=== PATIENT | female | born 1990 | race Caucasian/White ===

== ENCOUNTER 2017-11-13 20:09 | Emergency (ER) | payer MEDICAID ==
[2017-11-13 20:09] VITALS: BMI 32.2
[2017-11-13 20:21] VITALS: BP 122/86; PULSE 84; RESP 14; TEMP 98.4; O2SAT 98
[2017-11-13] MEDS ORDERED: DiphenhydrAMINE 12.5 mg/5 ml LIQ UD (5 ml) PO STA (21:30)
--- NOTE | 2017-11-13 21:35 | C.PDOC ---
History Of Present Illness 27 year old female presents to the ED for evaluation of a rash to her right ankle and foot. Patient states, noted some itchy rash yesterday to Right ankle and lateral developed swelling to Right foot. Otherwise, Patient denies known trauma, injury, fever, chills, throat swelling or pain, dyspnea, wheezing, cough , abd. pain, N/V, denies weakness, sensory/vascular deficit to Right foot. Ambulate to ED for evaluation, not in any apparent distress. Time Seen by Provider: 11/13/17 20:12 Chief Complaint (Nursing): Lower Extremity Problem/Injury History Per: Patient History/Exam Limitations: no limitations Onset/Duration Of Symptoms: Days (1) Current Symptoms Are (Timing): Still Present Recent travel outside of the [place]: No Additional History Per: Patient - Ankle/Foot Description Of Injury: Other Past Medical History Reviewed: Historical Data, Nursing Documentation, Vital Signs Vital Signs: Last Vital Signs Temp 98.4 F 11/13/17 20:18 Pulse 84 11/13/17 20:18 Resp 14 11/13/17 20:18 BP 122/86 11/13/17 20:18 Pulse Ox 98 11/13/17 21:38 - Medical History PMH: No Chronic Diseases Surgical History: No Surg Hx - [facility] Procedures EXTRACTION OF POC, LOW CERVICAL, OPEN APPROACH (06/11/16) Family History: States: Unknown Family Hx - Social History Hx Alcohol Use: No Hx Substance Use: No - Immunization History Hx Tetanus Toxoid Vaccination: Yes Hx Influenza Vaccination: Yes Hx Pneumococcal Vaccination: No Review Of Systems Constitutional: Negative for: Fever, Chills Respiratory: Negative for: Cough, Shortness of Breath Musculoskeletal: Positive for: Other (ankle swelling). Negative for: Foot Pain Skin: Positive for: Rash Neurological: Negative for: Weakness, Numbness Physical Exam - Physical Exam Appears: Non-toxic, No Acute Distress Skin: Warm, Dry, Rash (vasicular erythematous rash to anterior aspect right ankle, mild edema extend to dorsal aspect Right foot. No proximal streaking, no flactualnce.) Head: Normacephalic Eye(s): bilateral: PERRL Nose: No Flaring, No Discharge Tongue: No Swelling Lips: No Swelling Throat: No Erythema, No Drooling, Other (Uvula midline, no edema.) Neck: Supple Cardiovascular: Rhythm Regular, No Murmur Respiratory: No Decreased Breath Sounds, No Accessory Muscle Use, No Stridor, No Wheezing Gastrointestinal/Abdominal: Soft, No Tenderness, No Guarding Extremity: Normal ROM (Right LE), No Tenderness, No Pedal Edema, No Calf Tenderness (Right), Capillary Refill (< 2 seconds), No Deformity, Swelling ( diffuse dorsal right foot edema. No proximal streaking. No abscess) Pulses: Right Dorsalis Pedis: Normal Neurological/Psych: Oriented x3, Normal Motor, Normal Sensation, Normal Reflexes Gait: Steady ED Course And Treatment O2 Sat by Pulse Oximetry: 98 (ON RA) Pulse Ox Interpretation: Normal Progress Note: Plan: - Benadryl 25 mg PO. - Doxycycline 100 mg PO. - Prednisone 60 mg PO. On re-evaluation, pt is afebrile, hemodynamicaly stable. Non-toxic. Tolerate Po well in ED. ENT: no acute findings. uvual midline, no edema. Neck: Supple, (-) meningeal sign. Lungs: CTA B/L, BS equal B/L. Abd: benign. Right foot: pruritic vesicular erythematous rash to anterior aspect Right ankle with diffuse dorsal edema, mild erythema. NO proximal streaking, no abscess. FAROM, no neurovascular deficits, no calf tenderness. preg (-). results review with pt. Pt advised on course of ds. Ref. to F/u with PMD in 2- 3 days for re-eval. return to ED if any worsening or new changes. Disposition Counseled Patient/Family Regarding: Diagnosis, Need For Followup, Rx Given - Disposition Referrals: [facility] at [facility] [Outside] Disposition: HOME/ ROUTINE Disposition Time: 21:30 Condition: STABLE Additional Instructions: KEEP FOOT UP, ELEVATED TAKE MEDICATION PRESCRIBED FOLLOW UP WITH PMD IN 2 DAYS FOR RE-EVALUATION. RETURN TO ED IF ANY WORSENING OR NEW CHANGES. Prescriptions: DiphenhydrAMINE [Benadryl] 25 mg PO BID #14 cap Doxycycline Hyclate [Doryx] 100 mg PO BID #14 cap predniSONE [Prednisone] 40 mg PO DAILY #8 tab Instructions: Contact Dermatitis (DC), Cellulitis (Skin Infection), Adult (DC) Forms: [employer] (Cambodian) Print Language: ITALIAN - Clinical Impression Clinical Impression: Contact dermatitis, Cellulitis - PA / QA SPECIALIST / Resident Statement MD/DO has reviewed & agrees with the documentation as recorded. - Scribe Statement The provider has reviewed the documentation as recorded by the Scribe Fred Johnson All medical record entries made by the Scribe were at my direction and personally dictated by me. I have reviewed the chart and agree that the record accurately reflects my personal performance of the history, physical exam, medical decision making, and the department course for this patient. I have also personally directed, reviewed, and agree with the discharge instructions and disposition.
== END 2017-11-13 21:56 | disposition home or self-care (01) ==
LOC: C.ER 20:09
DX: L25.9 Unspecified contact dermatitis, unspecified cause (principal); L03.90 Cellulitis, unspecified

== ENCOUNTER 2017-11-26 23:41 | Emergency (ER) | payer SELFPAY ==
[2017-11-26 23:41] VITALS: BMI 32.2
[2017-11-27 00:04] VITALS: BP 111/76; PULSE 90; RESP 20; TEMP 98.2; O2SAT 99
--- NOTE | 2017-11-27 00:40 | C.PDOC ---
History Of Present Illness 27 year old female presents to the ED for evaluation of redness and itchiness to her left upper arm which began 2 days ago. Patient states she has not taken anything at home for her symptoms. She notes her symptoms are not improving and presents to the ED for further evaluation. She denies fever, chills, cough, shortness of breath, known allergens, contact with new products/foods, or trauma to the area. Time Seen by Provider: 11/27/17 00:30 Chief Complaint (Nursing): Abnormal Skin Integrity History Per: Patient History/Exam Limitations: no limitations Onset/Duration Of Symptoms: Days (2) Current Symptoms Are (Timing): Still Present Location Of Injury: Right: Arm (upper) Additional History Per: Patient Past Medical History Reviewed: Historical Data, Nursing Documentation, Vital Signs Vital Signs: Last Vital Signs Temp 98.2 F 11/26/17 23:59 Pulse 90 11/26/17 23:59 Resp 20 11/26/17 23:59 BP 111/76 11/26/17 23:59 Pulse Ox 99 11/27/17 04:20 - Medical History PMH: No Chronic Diseases Surgical History: No Surg Hx - [facility] Procedures EXTRACTION OF POC, LOW CERVICAL, OPEN APPROACH (06/11/16) Family History: States: Unknown Family Hx - Social History Hx Alcohol Use: No Hx Substance Use: No - Immunization History Hx Tetanus Toxoid Vaccination: Yes Hx Influenza Vaccination: Yes Hx Pneumococcal Vaccination: No Review Of Systems Constitutional: Negative for: Fever, Chills Respiratory: Negative for: Cough, Shortness of Breath Skin: Positive for: Rash (right upper arm ) Physical Exam - Physical Exam Appears: Non-toxic, No Acute Distress Skin: Warm, Dry, Other (large area of erythema to posterior aspect of left upper arm with some warmth. no pustules or wounds. small area of erythema to ulnar aspect of left wrist with two small pimples. no streaking) Head: Atraumatic, Normacephalic Eye(s): bilateral: Normal Inspection Oral Mucosa: Moist Throat: Normal Neck: Supple Chest: Symmetrical, No Deformity, No Tenderness Cardiovascular: Rhythm Regular, No Murmur Respiratory: Normal Breath Sounds, No Rales, No Rhonchi, No Wheezing Extremity: Normal ROM, Capillary Refill (less than 2 seconds ) Neurological/Psych: Oriented x3, Normal Speech, Normal Cognition ED Course And Treatment O2 Sat by Pulse Oximetry: 99 (on RA) Pulse Ox Interpretation: Normal Progress Note: Patient Keflex PO administered. On re-examination, patient is resting comfortably and showing no signs of respiratory distress. The pimple to patient's left wrist is consistent with possuble insect bite. Due to skin warmth and large area of erythema, patient will be started on antibiotics and anti-histamines. Patient is advised f/u for wound check in two days for further evaluation. Disposition Counseled Patient/Family Regarding: Diagnosis, Need For Followup, Rx Given - Disposition Referrals: [facility] at [facility] [Outside] Disposition: HOME/ ROUTINE Disposition Time: 00:38 Condition: STABLE Additional Instructions: Please follow up with PMD or in clinic in 2 days for nwound check Take meds as directed Return to ER if fever, moderate redness or swelling beyond marked area or worse Prescriptions: Cephalexin [cephalexin] 500 mg PO QID #20 cap DiphenhydrAMINE [Benadryl] 25 mg PO QID #20 cap Instructions: Insect Bites and Stings (DC) Forms: [employer] (Vietnamese) Print Language: MACEDONIAN - Clinical Impression Clinical Impression: Insect bite, Cellulitis - PA / [facility] / Resident Statement MD/DO has reviewed & agrees with the documentation as recorded. - Scribe Statement The provider has reviewed the documentation as recorded by the Scribe (Milana Mcpherson) All medical record entries made by the Scribe were at my direction and personally dictated by me. I have reviewed the chart and agree that the record accurately reflects my personal performance of the history, physical exam, medical decision making, and the department course for this patient. I have also personally directed, reviewed, and agree with the discharge instructions and disposition.
== END 2017-11-27 00:48 | disposition home or self-care (01) ==
LOC: C.ER 23:41
DX: S40.862A Insect bite (nonvenomous) of left upper arm, initial encounter (principal); W57.XXXA Bitten or stung by nonvenomous insect and other nonvenomous arthropods, initial encounter; L03.90 Cellulitis, unspecified